=== PATIENT | male | born 1935 | race Caucasian/White ===

== ENCOUNTER 2018-12-25 21:28 | Observation (INO) ==
[2018-12-26] MEDS ORDERED: Ipratropium/Albuterol Neb 3 ML IH PRN (01:33)
[2018-12-26] MEDS ORDERED: Acetaminophen 325 MG TABLET PO PRN (01:33)
[2018-12-26] MEDS ORDERED: *HR* Metoprolol 5 MG/5 ML VIAL IVP ONE (01:35)
[2018-12-26] MEDS ORDERED: *HR* Dextrose 50 % in Water (Syg) 50 ML SYRINGE IVP PRN (01:38)
[2018-12-26] MEDS ORDERED: Dextrose Gel 15 GM/37.5 ML TUBE PO PRN ×2 (01:38)
[2018-12-26] MEDS ORDERED: Ringers Solution, Lactated 1,000 ML IVC SCH (01:45)
[2018-12-26 02:08] LABS: Basophils % 0.4 %; Eosinophils # 0.3 K/mcL (0.0-0.6); Eosinophils % 3.9 %; Hematocrit 53.4 % (37.5-50.1); Immature Granulocytes % 0.3 % (0-4); Lymphocytes # 2.1 K/mcL (0.6-4.6); Lymphocytes % 29.9 %; Mean Corpuscular HGB Conc 31.8 g/dL (31.6-35.5); Mean Corpuscular Hemoglobin 31.6 pg (28.0-33.3); Mean Corpuscular Volume 99.3 fL (83.0-100.0); Monocytes # 0.4 K/mcL (0.0-1.3); Monocytes % 6.3 %; Neutrophils # 4.1 K/mcL (1.6-8.9); Platelet Count 113 K/mcL (140-400); Red Blood Count 5.38 M/mcL (4.19-5.50); Red Cell Distribution Width 13.6 % (11.5-14.5); Segmented Neutrophils % 59.2 %
[2018-12-26 02:11] LABS: VBG HCO3 28 mEq/L (21-27); VBG PCO2 55 mmHg (41-51); VBG PH 7.32 pH Units (7.32-7.42); VBG PO2 38 mmHg (25-50)
[2018-12-26 02:23] LABS: INR 2.7; Prothrombin Time 30.5 Seconds (9.4-12.1)
[2018-12-26 02:25] LABS: Activated Partial Thrombo Time 45.9 Seconds (26.0-36.0)
[2018-12-26 02:37] LABS: Alanine Aminotransferase 9 Units/L (7-52); Albumin/Globulin Ratio 1.4 (1.1-2.2); Alkaline Phosphatase 90 Units/L (34-104); Aspartate Amino Transferase 12 Units/L (13-39); BUN/Creatinine Ratio 18 (6-26); Bilirubin,Direct 0.2 mg/dL (0.0-0.2); Bilirubin,Indirect 1.2 mg/dL (0.0-1.2); Bilirubin,Total 1.4 mg/dL (0.3-1.0); Blood Urea Nitrogen 20 mg/dL (8-23); Calcium 9.1 mg/dL (8.6-10.3); Carbon Dioxide 27 mEq/L (23-29); Chloride 100 mEq/L (98-107); Globulin 2.9 g/dL (2.4-3.5); Glucose 291 mg/dL (70-105); Magnesium 1.9 mg/dL (1.6-2.6); Osmolality,Calculated 301 (280-300); Potassium 4.4 mEq/L (3.5-5.1); Sodium 139 mEq/L (136-145); Total Protein 6.9 g/dL (6.4-8.9); eGFR For African Americans > 60 (> 60); eGFR For Non-African Americans > 60 (> 60)
[2018-12-26 04:21] LABS: Bilirubin,Urine Negative (Negative); Blood,Urine Negative (Negative); Clarity,Urine Clear (Clear); Color,Urine Yellow (Yellow); Glucose,Urine (UA) >=1000 mg/dL (Normal); Ketones,Urine 80 mg/dL (Negative); Leukocyte Esterase,Urine Negative (Negative); Nitrite,Urine Negative (Negative); PH,Urine 5.5 pH Units (5.0-8.0); Protein,Urine Trace mg/dL (Neg-Trace); Specific Gravity,Urine > 1.030 (1.010-1.025); Urobilinogen,Urine Normal (Normal)
[2018-12-26] MEDS: Insulin LISPRO 300 UNITS/3 ML VIAL SQ SCH ×3 (05:48→18:49)
[2018-12-26] MEDS ORDERED: *HR* Heparin 5,000 UNIT/ML VIAL SQ SCH (06:00)
[2018-12-26 10:53] LABS: Folate > 22.3 ng/mL (3.0-16.0); Vitamin B12 83 pg/mL (250-1100)
[2018-12-26] MEDS: Insulin DETEMIR 100 UNIT/ML X5UNITS SQ SCH ×2 (13:37→21:43)
[2018-12-26] MEDS: 0.9 % Sodium Chloride 1,000 ML IVC SCH (17:13)
[2018-12-26] MEDS: Gabapentin 300 MG CAPSULE PO SCH ×2 (17:21→21:41)
[2018-12-26] MEDS ORDERED: *HR* Warfarin 5 MG TABLET PO ONE (18:00)
[2018-12-26] MEDS ORDERED: Warfarin perPT PO PRN (18:00)
[2018-12-27] MEDS: 0.9 % Sodium Chloride 1,000 ML IVC SCH (06:00)
[2018-12-27 07:40] LABS: Estimated Average Glucose 352 mg/dl
[2018-12-27 07:45] LABS: INR 3.9
[2018-12-27 07:59] LABS: Prothrombin Time 44.2 Seconds (9.4-12.1)
[2018-12-27] MEDS: Gabapentin 300 MG CAPSULE PO SCH ×3 (09:01→22:12)
[2018-12-27] MEDS: Insulin LISPRO 300 UNITS/3 ML VIAL SQ SCH ×3 (09:01→16:41)
[2018-12-27] MEDS: Insulin DETEMIR 100 UNIT/ML X5UNITS SQ SCH ×2 (09:03→22:13)
[2018-12-27] MEDS ORDERED: Cyanocobalamin (B-12) 1,000 MCG TABLET PO SCH (10:00)
[2018-12-27] MEDS: Cyanocobalamin (B-12) 1,000 MCG/ML VIAL IM SCH (12:04)
[2018-12-27] MEDS ORDERED: levETIRAcetam 250 MG TABLET PO SCH (21:00)
[2018-12-28 05:32] LABS: INR 3.4; Prothrombin Time 38.7 Seconds (9.4-12.1)
[2018-12-28] MEDS: Gabapentin 300 MG CAPSULE PO SCH (09:11)
[2018-12-28] MEDS: Cyanocobalamin (B-12) 1,000 MCG/ML VIAL IM SCH (09:12)
[2018-12-28] MEDS: Insulin LISPRO 300 UNITS/3 ML VIAL SQ SCH (09:13)
[2018-12-28] MEDS: Insulin DETEMIR 100 UNIT/ML X5UNITS SQ SCH (09:16)
[2018-12-28] MEDS ORDERED: levETIRAcetam 250 MG TABLET PO SCH (10:00)
[2018-12-28 15:13] VITALS: BP 97/66
[2018-12-28] MEDS ORDERED: *HR* Warfarin 2.5 MG TABLET PO ONE (18:00)
== END 2018-12-28 18:01 | disposition home health service (06) ==
LOC: 3BNU → SUATTDRO 12-26 00:10
PROVIDERS: ADMIT Internal Medicine Nephrology; ATTEND Family Medicine

== ENCOUNTER 2021-06-14 16:19 | Observation (INO) ==
[2021-06-14] MEDS ORDERED: Naloxone 0.4 MG/ML INJ IVP PRN (22:09)
[2021-06-14] MEDS ORDERED: Ondansetron 4 MG/2 ML VIAL IVP PRN (22:09)
[2021-06-14 22:57] LABS: Basophils # 0.1 K/mcL (0.0-0.2); Basophils % 0.7 %; Eosinophils # 0.2 K/mcL (0.0-0.6); Eosinophils % 2.4 %; Hematocrit 41.5 % (37.5-50.1); Hemoglobin 12.9 g/dL (12.9-16.9); Immature Granulocytes % 0.1 % (0-4); Lymphocytes # 1.8 K/mcL (0.6-4.6); Lymphocytes % 24.9 %; Mean Corpuscular HGB Conc 31.1 g/dL (31.6-35.5); Mean Corpuscular Hemoglobin 27.8 pg (28.0-33.3); Mean Corpuscular Volume 89.4 fL (83.0-100.0); Mean Platelet Volume 12.6 fL (9.4-12.4); Monocytes # 0.4 K/mcL (0.0-1.3); Monocytes % 6.2 %; Neutrophils # 4.7 K/mcL (1.6-8.9); Platelet Count 145 K/mcL (140-400); Red Blood Count 4.64 M/mcL (4.19-5.50); Red Cell Distribution Width 15.6 % (11.5-14.5); Segmented Neutrophils % 65.7 %; White Blood Count 7.1 K/mcL (4.3-11.1)
[2021-06-14 23:05] LABS: INR 3.5; Prothrombin Time 38.3 Seconds (9.4-12.1)
[2021-06-15] MEDS ORDERED: D5% in Water 1,000 ML IVC PRN (01:35)
[2021-06-15] MEDS ORDERED: Dextrose Gel 15 GM/37.5 ML TUBE PO PRN ×2 (01:35)
[2021-06-15] MEDS ORDERED: *HR* Dextrose 50 % in Water (Syg) 50 ML SYRINGE IVP PRN (01:35)
[2021-06-15] MEDS ORDERED: Pantoprazole 40 MG VIAL IVP SCH (02:00)
[2021-06-15] MEDS ORDERED: Insulin LISPRO 300 UNITS/3 ML VIAL SUBQ SCH (06:00)
[2021-06-15 06:30] LABS: Hematocrit 40.9 % (37.5-50.1); Hemoglobin 12.7 g/dL (12.9-16.9); Immature Platelets 13.2 % (1.1-6.1); Mean Corpuscular HGB Conc 31.1 g/dL (31.6-35.5); Mean Corpuscular Hemoglobin 28.1 pg (28.0-33.3); Mean Corpuscular Volume 90.5 fL (83.0-100.0); Mean Platelet Volume 12.7 fL (9.4-12.4); Red Blood Count 4.52 M/mcL (4.19-5.50); Red Cell Distribution Width 15.6 % (11.5-14.5); White Blood Count 7.2 K/mcL (4.3-11.1)
[2021-06-15 06:46] LABS: Albumin 2.8 g/dL (3.5-5.7); Albumin/Globulin Ratio 0.9 (1.1-2.2); Bilirubin,Direct 0.3 mg/dL (0.0-0.2); Bilirubin,Indirect 0.6 mg/dL (0.0-1.0); Bilirubin,Total 0.9 mg/dL (0.3-1.0); Globulin 3.1 g/dL (2.4-3.5); Magnesium 1.3 mg/dL (1.6-2.6); Phosphorous 3.5 mg/dL (2.7-4.5); Total Protein 5.9 g/dL (6.4-8.9)
[2021-06-15 07:46] LABS: INR 3.2; Prothrombin Time 35.2 Seconds (9.4-12.1)
[2021-06-15 10:53] LABS: BUN/Creatinine Ratio 15 (6-26); Blood Urea Nitrogen 14 mg/dL (8-23); Calcium 8.7 mg/dL (8.6-10.3); Carbon Dioxide 27 mEq/L (23-29); Chloride 102 mEq/L (98-107); Glucose 160 mg/dL (70-105); Osmolality,Calculated 294 (280-300); Potassium 4.1 mEq/L (3.5-5.1); Sodium 140 mEq/L (136-145); eGFR For African Americans > 60 (> 60); eGFR For Non-African Americans > 60 (> 60)
[2021-06-15 11:21] VITALS: TEMP 97.9
[2021-06-15 11:40] LABS: Hepatitis B Surface Antigen Nonreactive (Nonreactive)
[2021-06-15 12:09] LABS: Hepatitis C Virus Antibody Nonreactive (Nonreactive)
[2021-06-15 12:11] LABS: Hepatitis B Core IgM Nonreactive (Nonreactive)
[2021-06-15 12:14] LABS: Hepatitis A Antibody IgM Nonreactive (Nonreactive)
[2021-06-15 14:20] LABS: Hemoglobin 12.6 g/dL (12.9-16.9)
[2021-06-15 14:21] LABS: Hematocrit 40.6 % (37.5-50.1)
[2021-06-15 14:25] VITALS: BP 127/75; PULSE 85; O2SAT 92
== END 2021-06-15 16:28 ==
LOC: 3ANU → SUATTDRO 21:16
PROVIDERS: ADMIT Internal Medicine; ATTEND Student in an Organized Health Care Education/Training Program